=== PATIENT | female | born 1960 | race Caucasian/White ===

== ENCOUNTER 2018-02-08 15:27 | Emergency (ER) | payer OTHER ==
[~2018-02-08] VITALS: Ht 152.4 cm; Wt 54.4 kg
[2018-02-08] MEDS ORDERED: EFFEXOR 5050 MG/1 T1 PO (15:40)
[2018-02-08] MEDS ORDERED: SYNTHROID88 MCG PO (15:41)
[2018-02-08] MEDS ORDERED: HYDROCORTISONE30 G9 RECTAL (16:07)
[2018-02-08 16:18] VITALS: BP 112/62
== END 2018-02-08 16:17 | disposition home or self-care (01) ==
LOC: M.ERS 15:27
DX: K64.9 Unspecified hemorrhoids (principal); F32.9 Major depressive disorder, single episode, unspecified; F41.9 Anxiety disorder, unspecified; E03.9 Hypothyroidism, unspecified